=== PATIENT | female | born 1995 | race Hispanic/Latino ===

== ENCOUNTER 2021-08-10 08:56 | Emergency (ER) | payer SELFPAY ==
[~2021-08-10] VITALS: Ht 162.6 cm; Wt 91.6 kg
[2021-08-10] MEDS ORDERED: IBUPROFEN 600 MG TAB PO ONE (09:30)
[2021-08-10] MEDS ORDERED: IBUPROFEN600 MG PO (10:00)
== END 2021-08-10 10:34 | disposition home or self-care (01) ==
LOC: ER 09:00
DX: M25.571 Pain in right ankle and joints of right foot (principal); W10.8XXA Fall (on) (from) other stairs and steps, initial encounter; Y93.01 Activity, walking, marching and hiking
CPT/HCPCS: 99284